=== PATIENT | female | born 1955 | race Caucasian/White ===

== ENCOUNTER 2021-01-19 16:43 | Outpatient (CLI) | payer OTHER, SELFPAY ==
--- NOTE | ~2021-01-19 | US_ITS ---
US venous doppler LE RT DATE: 01/19/2021 17:18 INDICATION: Right knee pain TECHNIQUE: Real-time and color flow imaging and Doppler analysis of the veins of the right lower extr emity COMPARISON: 02/07/2018 venous duplex examination of both lower extremities FINDINGS: The greater saphenous vein is patent. There is spontaneous and phasic flow and normal augme ntation and color flow signal and normal compression of the deep veins of the right leg. IMPRESSION: No evidence of deep venous thrombosis of the right leg Reviewed, dictated and finalized at [facility]. Reviewed, dictated and finalized at [facility].
== END 2021-01-19 16:44 | disposition home or self-care (01) ==
LOC: ANHIMG 16:48
PROVIDERS: PCP Family Medicine; Visit Provider Family Medicine
DX: M25.561 Pain in right knee (principal); M79.661 Pain in right lower leg; D68.51 Activated protein C resistance; Z79.01 Long term (current) use of anticoagulants
CPT/HCPCS: 93971

== ENCOUNTER 2022-01-03 11:10 | Emergency (ER) | payer OTHER, SELFPAY ==
--- NOTE | ~2022-01-03 | CT_ITS ---
EXAMINATION: CT abdomen pelvis wo con DATE: 01/03/2022 14:25 INDICATION: llq pain TECHNIQUE: Computed tomography (CT) of the abdomen and pelvis was performed without intravenous contr ast. Automated exposure control and iterative reconstruction technique were employed. The dose-length product was 1547.21 mGy-cm. COMPARISON: None. FINDINGS: Lower thorax: Left basilar scar. Liver: Normal. Biliary/Gallbladder: Gallbladder is normal. No bile duct dilation. Pancreas: No mass or duct dilation. Mild atrophy. Spleen: Normal. Adrenals:No mass. Kidneys: No mass, stone, or hydronephrosis. 10 mm right inferior pole simple cyst. GI tract: No small or large bowel dilation. Normal appendix. Diverticulosis without diverticulitis. Mesentery/Peritoneum: No ascites, mass, or free air. Retroperitoneum: No mass. Pelvis: Pelvic organs are within normal limits. Soft Tissues: Soft tissues and body wall unremarkable. Bones: No acute osseous finding. IMPRESSION: No acute abdominopelvic process detected. Reviewed, dictated and finalized at [facility].
[2022-01-03 11:14] VITALS: BP 181/65; PULSE 58; RESP 18; TEMP 36.4; O2SAT 95
[2022-01-03 11:29] LABS: Basophils Percent Auto 0.5 % (0.2-1.2); Eosinophils Absolute Auto 0.2 K/mm3 (0-0.3); Eosinophils Percent Auto 2.5 % (0-4.4); Hematocrit 48.2 % (37.0-47.0); Immature Granulocyte Absolute 0.03 K/mm3 (0.00-0.031); Immature Granulocyte Percent A 0.4 % (0-0.5); Lymphocytes Absolute Auto 1.86 K/mm3 (0.9-3.2); Mean Corpuscular HGB Conc 31.1 g/dl (32-36); Mean Corpuscular Volume 99.6 fl (80-100); Mean Platelet Volume 10.8 fl (7.4-10.4); Monocytes Absolute Auto 0.7 K/mm3 (0.1-0.6); Monocytes Percent Auto 8.8 % (2.6-8.5); Neutrophils Absolute Auto 5.3 K/mm3 (1.3-6.7); Neutrophils Percent Auto 64.8 % (45.5-73.1); Platelet Count Result 217 k/mm3 (150-375); Red Blood Count 4.84 M/mm3 (4.2-5.4); Red Cell Distribution Width 12.9 % (11.5-14.5); White Blood Count 8.1 K/mm3 (4.5-10.0)
[2022-01-03 11:43] LABS: Alanine Aminotransferase 17 U/L (6-35); Albumin Level 4.3 g/dL (3.5-5.1); Alkaline Phosphatase 106 U/L (38-126); Anion Gap 7 mmol/L (8-16); Aspartate Amino Transferase 27 U/L (14-36); Bilirubin,Total 0.8 mg/dL (0.2-1.3); Blood Urea Nitrogen 33 mg/dL (7-17); Calcium 9.4 mg/dL (8.4-10.2); Carbon Dioxide 34 mmol/L (22-30); Chloride 98 mmol/L (98-107); Estimated CRCL calculation 55 ml/min; Estimated Glomerular Filt Rate 41; Glucose 133 mg/dL (65-110); Lipase 109 U/L (23-300); Sodium 139 mmol/L (137-145)
[2022-01-03 12:45] LABS: Add Urine Microscopic? YES; Appearance Urine Slightly Cloudy (Clear); Bilirubin Urine Negative (Negative); Blood Urine Trace-lysed (Negative); Color Urine Yellow (Yellow); Glucose Urine UA Negative (Negative); Ketones Urine Negative (Negative); Leukocyte Esterase Ur 3+ LEU/UL (Negative); Nitrate Urine Negative (Negative); Protein Urine 1+ mg/dL (Negative); Urobilinogen Urine 0.2 mg/dL (<2.0); pH Urine 5.5 (5.0-9.0)
[2022-01-03 13:00] LABS: Bacteria Urine Trace /hpf; Mucus Urine Rare /lpf; Squamous Epithelial Cell Urine Many /hpf (Few); WBC Urine 21-30 /hpf
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
[2022-01-03] MEDS: cefTRIAXone 1 GM VIAL IM (15:07)
== END 2022-01-03 15:32 | disposition home or self-care (01) ==
PROVIDERS: Emergency Provider Emergency Medicine; PCP Family Medicine
DX: K59.00 Constipation, unspecified (principal); N39.0 Urinary tract infection, site not specified
CPT/HCPCS: 36415; 74176; 80053; 81001; 83690; 85025; 87086; 87088; 96372; 99284; J0696

== ENCOUNTER 2024-03-07 09:21 | Outpatient (CLI) | payer OTHER, SELFPAY ==
--- NOTE | 2024-03-07 | ECHO_ITS ---
Patient Info Name: Jaclyn Kim Age: 69 years : 1955 Gender: Female Ht: 68 in Wt: 292 lbs BSA: 2.59 m2 HR: 75 bpm BP: 120 / 86 mmHg Technical Quality: Poor Exam Date: 03/07/2024 10:12 AM Exam Location: [facility] Patient Status: Outpatient Admit Date: 03/07/2024 Staff Ordering Physician: AudraMiri MD Video Games Storywriter: Lorin Wheat RDCS Attending Provider: Audra, Miri Juan MD Referring Physician: Marlene HOBBS; Exam Type: CA echo dop color flow w con Study Info Indications R06.09 - Other forms of dyspnea I10 - Essential (primary) hypertension Complete two-dimensional, color flow and Doppler transthoracic echocardiogram is performed with contrast to opacify the left ventricle and to improve the deliniation of the left ventricle endocardial borders. Contrast/Agitated Saline Contrast/Ag. Saline: Definity Amount: 4.00 ml Administered By: Lorin Wheat RDCS New IV Access: Inner Forearm and Right Site Condition: No extravasation, Site dressing applied and IV removed Reason for Poor Study: patient body habitus Summary 1. The left ventricle size and systolic function is normal. Normal diastolic function. LVEF is estimated to be 55-60%. Left Ventricle The left ventricle size and systolic function is normal. Normal diastolic function. LVEF is estimated to be 55-60%. Right Ventricle The right ventricle size and systolic function is normal. Left Atria Left atrial chamber dimension is normal. Left atrial chamber dimension is normal. Right Atria Right atrial chamber dimension is normal. Right atrial chamber dimension is normal. Aortic Valve The aortic valve is trileaflet. There is no stenosis or aortic regurgitation. Pulmonic Valve The pulmonic valve is poorly visualized. There is no color Doppler evidence of pulmonic valve regurgitation. Mitral Valve The mitral valve is sclerotic. There is trace mitral regurgitation. Tricuspid Valve The tricuspid valve is normal there is mild tricuspid valve regurgitation. Pericardium/Pleural Pericardium is normal in appearance with no evidence for significant pericardial effusion. Inferior Vena Cava Inferior vena cava is not well visualized. Aorta The aortic root is normal in diameter measuring 2.9 cm at the level of the sinus of Valsalva. Left Ventricular Outflow Tract Name Value Normal LVOT 2D LVOT Diameter 1.96 cm LVOT Doppler LVOT Peak Gradient 4 mmHg LVOT Mean Gradient 2 mmHg LVOT VTI 22.89 cm LVOT VTI/AV VTI Ratio 0.89 LVOT Stroke Volume 68.87 ml LVOT CO 3.67 l/min LVOT CI 1.42 L/min/m2 Pulmonic Valve Name Value Normal RVOT Doppler RVOT Peak Gradient 2 mmHg PV Doppler
[2024-03-07] MEDS: PERFLUTREN LIPID MICROSPHERES 1.5 ML VIAL DILUTED TO 10 ML TOTAL VOLUME IV PUSH (11:00)
--- NOTE | 2024-03-07 11:12 | IVDEFINITY ---
Prior to administration of IV Definity the patient was educated on the risks and benefits of the imaging enhancing agent including potential adverse side effects. The patient verbalized understanding. Allergies were verified. No exclusion criteria were identified and at least one of the following inclusion criteria were met: 1) physician request, 2) patient technically difficult to image (per the [place] [employer] guidelines of two or more segments not discernable within the apical view), or 3) questionable left ventricular function. ?
== END 2024-03-07 09:22 | disposition home or self-care (01) ==
PROVIDERS: PCP Family Medicine; Visit Provider Family Medicine
DX: I10 Essential (primary) hypertension (principal); R06.09 Other forms of dyspnea; I07.1 Rheumatic tricuspid insufficiency; I70.0 Atherosclerosis of aorta
CPT/HCPCS: C8929; Q9957